=== PATIENT | female | born 1975 | race Two or more races ===

== ENCOUNTER 2017-06-14 07:45 | Emergency (ER) | payer MEDICAID ==
[~2017-06-14] VITALS: Ht 162.6 cm; Wt 77.1 kg
[~2017-06-14 07:45] MED LIST: DOCU100T15 PO; ERGO1CAP6 PO; FER325T PO; LACT10SO32 PO; POLY33504 PO
[2017-06-14 07:54] VITALS: BP 133/88
[2017-06-14] MEDS ORDERED: KETOROLAC TROMETH 60MG/2ML VIAL IM ONE (08:30)
== END 2017-06-14 08:45 | disposition home or self-care (01) ==
LOC: ER 07:45
DX: S76.012A Strain of muscle, fascia and tendon of left hip, initial encounter (principal); X50.1XXA Overexertion from prolonged static or awkward postures, initial encounter; Y93.89 Activity, other specified; Y92.89 Other specified places as the place of occurrence of the external cause; Y99.8 Other external cause status
CPT/HCPCS: 96372; 99283; J1885

== ENCOUNTER 2017-06-26 19:22 | Emergency (ER) | payer MEDICAID ==
[~2017-06-26] VITALS: Ht 162.6 cm; Wt 77.1 kg
[2017-06-26 20:33] LABS: INR 0.93 (0.9-1.15); Partial Thromboplastin Time 26.3 sec (22.64-33.71); Prothrombin Time 10.1 sec (9.37-12.3)
[2017-06-26 20:48] LABS: BUN/Creatinine Ratio 14.5; Calcium 8.6 mg/dL (8.5-10.1); Potassium 3.8 mmol/L (3.5-5.1)
[2017-06-26 20:53] LABS: Bilirubin, Total 0.3 mg/dL (0.2-1.0); Total Protein 7.7 g/dL (6.4-8.2)
[2017-06-26 21:13] LABS: Basophils # (auto) 0.1 uL; CONDITION Y; DEFINITIVE SEE PRINTOUT; Eosinophils # (auto) 0 uL; Eosinophils % (auto) 0.5 % (0.0-7.0); Hematocrit 29.4 % (36.0-46.0); Hemoglobin 9.4 g/dL (12.2-16.2); Lymphocytes # (auto) 2.3 uL; Lymphocytes % (auto) 35.3 % (10.0-50.0); Mean Corpuscular Hemoglobin 21.9 pg (28.0-32.0); Mean Corpuscular Hgb Conc. 31.8 g/dL (32.0-36.0); Mean Corpuscular Volume 68.6 fL (80.0-100.0); Mean Platelet Volume 8.9 fL (7.4-10.4); Monocytes # (auto) 0.4 uL; Monocytes % (auto) 6.4 % (0.0-12.0); Neutrophils # (auto) 3.8 uL; Neutrophils % (auto) 56.8 % (37.0-80.0); Platelet Count (auto) 355 10^3/uL (140-450); Red Cell Distribution Width 16.6 % (11.6-16.0); White Blood Cell 6.6 10^3/uL (4.4-10.8)
[2017-06-26 22:48] LABS: Urine Bilirubin Negative (Negative); Urine Blood 1+ /uL (Negative); Urine Color Yellow (Yellow); Urine Glucose Normal (Normal); Urine Ketone Negative (Negative); Urine Mucus FEW (None Seen); Urine Nitrite Negative (Negative); Urine RBC 2 /hpf (0 - 4); Urine Squamous Epithelial Cell FEW /hpf (<5); Urine pH 6.5 (5.0-8.0)
[2017-06-27] MEDS ORDERED: LORazepam 0.5 MG TAB PO ONE (04:00)
[2017-06-27 07:45] VITALS: BP 129/88
== END 2017-06-27 07:22 | disposition home or self-care (01) ==
LOC: ER 19:29
DX: F41.9 Anxiety disorder, unspecified (principal); G43.909 Migraine, unspecified, not intractable, without status migrainosus; Z87.442 Personal history of urinary calculi
CPT/HCPCS: 36415; 70450; 80053; 80307; 81001; 81025; 84702; 85025; 85610; 85730; 94761

== ENCOUNTER 2017-06-29 16:25 | Inpatient (IN) | payer MEDICAID ==
[~2017-06-29] VITALS: Ht 162.6 cm; Wt 77.8 kg
[2017-06-29 17:04] LABS: Basophils # (auto) 0 uL; Basophils % (auto) 0.6 % (0.0-2.0); CONDITION Y; DEFINITIVE SEE PRINTOUT; Eosinophils # (auto) 0 uL; Eosinophils % (auto) 0.3 % (0.0-7.0); Hemoglobin 9.8 g/dL (12.2-16.2); Lymphocytes # (auto) 1.8 uL; Lymphocytes % (auto) 32.9 % (10.0-50.0); Mean Corpuscular Hemoglobin 21.9 pg (28.0-32.0); Mean Corpuscular Hgb Conc. 31.6 g/dL (32.0-36.0); Mean Corpuscular Volume 69.2 fL (80.0-100.0); Mean Platelet Volume 8.2 fL (7.4-10.4); Monocytes # (auto) 0.4 uL; Monocytes % (auto) 6.9 % (0.0-12.0); Neutrophils # (auto) 3.3 uL; Neutrophils % (auto) 59.3 % (37.0-80.0); Platelet Count (auto) 392 10^3/uL (140-450); White Blood Cell 5.5 10^3/uL (4.4-10.8)
[2017-06-29 17:36] LABS: Albumin 3.7 g/dL (3.4-5.0); Alkaline Phosphatase 63 U/L (45-117); Anion Gap 9 (5-15); Aspartate Aminotransferase 11 U/L (15-37); BUN/Creatinine Ratio 16.7; Bilirubin, Total 0.2 mg/dL (0.2-1.0); Blood Urea Nitrogen 12 mg/dL (7-18); Calcium 8.5 mg/dL (8.5-10.1); Carbon Dioxide 23 mmol/L (21-32); Chloride 108 mmol/L (98-107); GFR African American 116 mL/min; GFR Non-African American 96 mL/min; Glucose 95 mg/dL (74-106); Magnesium 2.4 mg/dL (1.6-2.6); Potassium 4.3 mmol/L (3.5-5.1); Sodium 140 mmol/L (136-145); Total Protein 7.7 g/dL (6.4-8.2)
[2017-06-29] MEDS ORDERED: ASPirin 81 mg TAB PO ONE (23:15)
[2017-06-29] MEDS ORDERED: ACETAMINOPHEN 500 MG TAB PO PRN (23:30)
[2017-06-29] MEDS ORDERED: LORazepam 0.5 MG TAB PO PRN (23:30)
[2017-06-29] MEDS ORDERED: MORPHINE SULF INJ 2 MG/ML SYRINGE 1ML IV PRN (23:30)
[2017-06-29] MEDS ORDERED: ONDANSETRON HCL 4 MG/2 ML VIAL IV PRN (23:30)
[2017-06-29] MEDS ORDERED: ASPirin 81 mg TAB ONE (23:39)
[2017-06-29] MEDS: SODIUM CHLORIDE 0.9% 1,000 ML IV SCH (23:48)
[2017-06-30] VITALS (8 sets, daily range): BP systolic 129–141; BP diastolic 79–104
[2017-06-30] LABS: Cholesterol 180 mg/dL (< 200); HDL Cholesterol 68 mg/dL (40-59); LDL Cholesterol 110 mg/dL (< 100); Triglycerides 86 mg/dL (< 150)
[2017-06-30] MEDS: HYDROcodone-ACET 5/325MG TAB PO PRN ×4 (01:32→22:19)
[2017-06-30 05:54] LABS: Urine Bilirubin Negative (Negative); Urine Blood Negative /uL (Negative); Urine Color Yellow (Yellow); Urine Glucose Normal (Normal); Urine Ketone TRACE (Negative); Urine Mucus FEW (None Seen); Urine Nitrite Negative (Negative); Urine RBC <1 /hpf (0 - 4); Urine Squamous Epithelial Cell FEW /hpf (<5)
[2017-06-30 06:44] LABS: Basophils # (auto) 0 uL; Basophils % (auto) 0.5 % (0.0-2.0); CONDITION Y; DEFINITIVE SEE PRINTOUT; Eosinophils # (auto) 0 uL; Eosinophils % (auto) 0.9 % (0.0-7.0); Hematocrit 28.3 % (36.0-46.0); Lymphocytes # (auto) 2.5 uL; Lymphocytes % (auto) 47.4 % (10.0-50.0); Mean Corpuscular Hemoglobin 21.9 pg (28.0-32.0); Mean Corpuscular Hgb Conc. 31.8 g/dL (32.0-36.0); Mean Platelet Volume 8.8 fL (7.4-10.4); Monocytes # (auto) 0.4 uL; Monocytes % (auto) 7.7 % (0.0-12.0); Neutrophils # (auto) 2.3 uL; Neutrophils % (auto) 43.5 % (37.0-80.0); Platelet Count (auto) 315 10^3/uL (140-450); Red Cell Distribution Width 16.3 % (11.6-16.0); White Blood Cell 5.3 10^3/uL (4.4-10.8)
[2017-06-30 06:59] LABS: Potassium 3.7 mmol/L (3.5-5.1)
[2017-06-30 07:04] LABS: BUN/Creatinine Ratio 18.4; Calcium 8.3 mg/dL (8.5-10.1)
[2017-06-30] MEDS: SODIUM CHLORIDE 0.9% 1,000 ML IV SCH (07:30)
[2017-06-30] MEDS: ASPirin 81 mg TAB PO SCH (09:26)
[2017-06-30] MEDS ORDERED: ASPirin 81 mg TAB PO SCH (10:00)
[2017-06-30] MEDS ORDERED: LORazepam 2MG/ML-1ML VIAL IV ONE (14:00)
[2017-06-30] MEDS ORDERED: DOCUSATE SOD 100 MG CAP PO ONE (14:30)
[2017-06-30] MEDS ORDERED: IOHEXOL 350 MG/ML 100ML IJ ONE (16:26)
[2017-06-30] MEDS: FERROUS SULFATE 325 MG TAB PO SCH (18:35)
[2017-06-30] MEDS: DOCUSATE SOD 100 MG CAP PO SCH (21:31)
[2017-07-01 04:32] VITALS: BP 131/81
[2017-07-01 05:44] LABS: Basophils # (auto) 0 uL; Basophils % (auto) 0.8 % (0.0-2.0); CONDITION Y; DEFINITIVE SEE PRINTOUT; Eosinophils # (auto) 0.1 uL; Eosinophils % (auto) 1.3 % (0.0-7.0); Hematocrit 28.1 % (36.0-46.0); Hemoglobin 8.6 g/dL (12.2-16.2); Lymphocytes # (auto) 2.2 uL; Lymphocytes % (auto) 50.2 % (10.0-50.0); Mean Corpuscular Hemoglobin 21.6 pg (28.0-32.0); Mean Corpuscular Hgb Conc. 30.8 g/dL (32.0-36.0); Mean Corpuscular Volume 70.1 fL (80.0-100.0); Mean Platelet Volume 8.6 fL (7.4-10.4); Monocytes # (auto) 0.4 uL; Monocytes % (auto) 8.1 % (0.0-12.0); Neutrophils # (auto) 1.8 uL; Neutrophils % (auto) 39.6 % (37.0-80.0); Platelet Count (auto) 320 10^3/uL (140-450); Red Cell Distribution Width 16.4 % (11.6-16.0); White Blood Cell 4.4 10^3/uL (4.4-10.8)
[2017-07-01 06:19] LABS: Calcium 8.3 mg/dL (8.5-10.1); Potassium 3.7 mmol/L (3.5-5.1)
[2017-07-01 06:21] LABS: BUN/Creatinine Ratio 13.5
[2017-07-01 08:00] VITALS: BP 142/75
[2017-07-01] MEDS: FERROUS SULFATE 325 MG TAB PO SCH ×2 (08:11→12:00)
[2017-07-01] MEDS: HYDROcodone-ACET 5/325MG TAB PO PRN (08:12)
[2017-07-01 08:30] VITALS: BP 142/85
[2017-07-01] MEDS: ASPirin 81 mg TAB PO SCH (10:10)
[2017-07-01] MEDS: DOCUSATE SOD 100 MG CAP PO SCH (10:10)
[2017-07-01 12:17] VITALS: BP 134/69
[2017-07-01 12:31] LABS: Temperature: 22.3 C (20.0-25.0)
[2017-07-01] MEDS ORDERED: DOCU100C8 PO (13:42)
[2017-07-01] MEDS ORDERED: FER325T PO (13:42)
[2017-07-01 16:00] VITALS: BP 134/69
== END 2017-07-01 16:00 | disposition home or self-care (01) | DRG 347 ==
LOC: ER 16:32 → OVERFLOW 16:33 → WEST WING 06-30 00:30
PROVIDERS: ADMIT Nurse Practitioner Family; ATTEND Internal Medicine
DX: M50.30 Other cervical disc degeneration, unspecified cervical region (principal); M48.02 Spinal stenosis, cervical region; Z79.899 Other long term (current) drug therapy; M47.812 Spondylosis without myelopathy or radiculopathy, cervical region; D50.9 Iron deficiency anemia, unspecified; D64.9 Anemia, unspecified; I77.89 Other specified disorders of arteries and arterioles; F41.9 Anxiety disorder, unspecified; Z82.49 Family history of ischemic heart disease and other diseases of the circulatory system; Z80.9 Family history of malignant neoplasm, unspecified; Z83.2 Family history of diseases of the blood and blood-forming organs and certain disorders involving the immune mechanism; Z83.3 Family history of diabetes mellitus; Z85.89 Personal history of malignant neoplasm of other organs and systems
CPT/HCPCS: 36415; 70450; 70496; 70498; 70551; 71020; 72141; 80048; 80053; 80061; 80307; 81001; 82607; 82746; 83540; 83550; 83735; 84443; 84484; 84702; 85025; 85652; 93005; 93886

== ENCOUNTER 2018-07-01 07:09 | Emergency (ER) | payer MEDICAID ==
[~2018-07-01] VITALS: Ht 162.6 cm; Wt 89.8 kg
[~2018-07-01 07:09] MED LIST changes: +DOCU100C8 PO; -DOCU100T15 PO; -ERGO1CAP6 PO; -LACT10SO32 PO; -POLY33504 PO
[2018-07-01 07:32] VITALS: BP 151/103
[2018-07-01] MEDS ORDERED: KETOROLAC TROMETH 60MG/2ML VIAL IM ONE (07:45)
[2018-07-01] MEDS ORDERED: HYDROcodone-ACET 10/325MG TAB PO ONE (07:45)
== END 2018-07-01 09:04 | disposition home or self-care (01) ==
LOC: ER 07:09
DX: G89.29 Other chronic pain (principal); M54.5 Low back pain
CPT/HCPCS: 72131

== ENCOUNTER 2019-09-01 19:35 | Emergency (ER) | payer MEDICAID ==
[~2019-09-01] VITALS: Ht 170.2 cm; Wt 86.2 kg
[2019-09-01] MEDS ORDERED: SODIUM CHLORIDE 0.9% 500 ML IV ONE (19:54)
[2019-09-01 20:43] LABS: Basophils # (auto) 0.1 uL; Eosinophils # (auto) 0 uL; Hematocrit 21.1 % (36.0-46.0); Mean Corpuscular Hgb Conc. 30.3 g/dL (32.0-36.0); Monocytes # (auto) 0.5 uL; Nucleated Red Blood Cells % 0.2 %
[2019-09-01 20:44] LABS: Basophils % (auto) 2.8 % (0.0-2.0); Eosinophils % (auto) 0.4 % (0.0-7.0); Lymphocytes # (auto) 2.3 uL; Mean Corpuscular Hemoglobin 18.3 pg (28.0-32.0); Mean Corpuscular Volume 60.4 fL (80.0-100.0); Monocytes % (auto) 9.1 % (0.0-12.0); Neutrophils % (auto) 40.7 % (37.0-80.0); Platelet Count (auto) 321 10^3/uL (140-450); Red Cell Distribution Width 17.8 % (11.8-14.3)
[2019-09-01 20:45] LABS: Albumin 3.6 g/dL (3.4-5.0); Anion Gap 8 (5-15); Blood Urea Nitrogen 12 mg/dL (7-18); Calcium 7.8 mg/dL (8.5-10.1); Carbon Dioxide 22 mmol/L (21-32); Chloride 112 mmol/L (98-107); Glucose 79 mg/dL (74-106); Magnesium 2.1 mg/dL (1.6-2.6); Potassium 3.9 mmol/L (3.5-5.1); Sodium 142 mmol/L (136-145)
[2019-09-01 20:47] LABS: Alanine Aminotransferase 16 U/L (13-56); Aspartate Aminotransferase 14 U/L (15-37); BUN/Creatinine Ratio 18.8; GFR African American 132 mL/min; GFR Non-African American 109 mL/min
[2019-09-01 20:49] LABS: Hemoglobin 6.4 g/dL (12.2-16.2)
[2019-09-01 20:52] LABS: Alkaline Phosphatase 63 U/L (45-117); Bilirubin, Total 0.2 mg/dL (0.2-1.0); Total Protein 7.2 g/dL (6.4-8.2)
[2019-09-01 21:37] LABS: INR 0.95 (0.9-1.15); Partial Thromboplastin Time 26.3 sec (23.64-32.05)
[2019-09-01 21:41] LABS: Urine Bacteria MANY /hpf (None Seen); Urine Blood Negative /uL (Negative); Urine Mucus FEW (None Seen); Urine Specific Gravity 1.018 (1.001-1.035); Urine WBC 10 /hpf (0 - 5)
[2019-09-01 22:41] VITALS: BP 117/74
[2019-09-01 22:59] VITALS: BP 120/79
[2019-09-02 00:14] VITALS: BP 143/71
[2019-09-02 00:34] VITALS: BP 110/69
[2019-09-02 00:49] VITALS: BP 106/63
[2019-09-02 02:06] VITALS: BP 128/83
== END 2019-09-02 02:36 | disposition home or self-care (01) ==
LOC: ER 19:35 → EDBD 19:35 → ER 09-02 02:15
DX: D64.9 Anemia, unspecified (principal)
CPT/HCPCS: 36415; 36430; 71045; 80053; 81001; 83735; 83880; 84484; 85025; 85610; 85730; 86850; 86900; 86901; 86920; 94761; 99285; J7030; J7040; P9016

== ENCOUNTER 2021-09-04 10:30 | Inpatient (IN) | payer MEDICAID ==
[2021-09-04] VITALS (7 sets, daily range): BP systolic 126–150; BP diastolic 75–91
[~2021-09-04] VITALS: Ht 162.6 cm; Wt 89.1 kg
[~2021-09-04 10:30] MED LIST changes: +DOCU100C10 PO; -DOCU100C8 PO; +ROPI0.254 PO
[2021-09-04 11:38] LABS: White Blood Cell 3.5 10^3/uL (4.4-10.8)
[2021-09-04 11:42] LABS: Hematocrit 19.7 % (36.0-46.0); Mean Corpuscular Hemoglobin 15.5 pg (28.0-32.0); Mean Corpuscular Hgb Conc. 28.8 g/dL (32.0-36.0); Mean Corpuscular Volume 54.1 fL (80.0-100.0); Red Blood Cells 3.65 10^6/uL (4.0-5.20); Red Cell Distribution Width 19.8 % (11.8-14.3)
[2021-09-04 11:56] LABS: Hemoglobin 5.7 g/dL (12.2-16.2)
[2021-09-04 11:57] LABS: Basophils % (manual) 0 (0.0-2.0); Blast Cells 0; Eosinophils % (manual) 0 (0-7); Metamyelocytes % 0; Myelocytes % 0; Promyelocytes % 0; Reactive Lymphocytes 0
[2021-09-04 12:02] LABS: Albumin 3.4 g/dL (3.4-5.0); BUN/Creatinine Ratio 18.6; Bilirubin, Total 0.4 mg/dL (0.2-1.0); Calcium 8.2 mg/dL (8.5-10.1); Total Protein 7.2 g/dL (6.4-8.2)
[2021-09-04 13:03] LABS: Band Neutrophils % (manual) 2; Lymphocytes % (manual) 48 (10.0-50.0); Monocytes % (manual) 7 (0-12)
[2021-09-04] MEDS ORDERED: MORPHINE SULFATE INJECTION 2 MG/ML SYRG IV PRN (13:30)
[2021-09-04] MEDS ORDERED: ONDANSETRON HCL 4 MG/2 ML VIAL IV PRN (13:30)
[2021-09-04] MEDS ORDERED: NITROGLYCERIN 0.4 MG SL TAB SL PRN (13:30)
[2021-09-04] MEDS ORDERED: ACETAMINOPHEN 325 MG TAB PO PRN (13:30)
[2021-09-04] MEDS ORDERED: DOCUSATE SOD 100 MG CAP PO PRN (13:30)
[2021-09-04] MEDS ORDERED: SODIUM FERR GLUC 62.5MG/5ML 125 MG in SODIUM CHL 0.9% 100 ML IV ONE (13:45)
[2021-09-04 14:36] LABS: % Iron Saturation 3.7 % (15-50)
[2021-09-04] MEDS: HYDROcodone-ACET 5/325MG TAB PO PRN ×2 (16:59→21:38)
[2021-09-04] MEDS: ASCORBIC ACID 500 MG TAB PO SCH (21:29)
[2021-09-05 05:41] LABS: Hemoglobin 8.1 g/dL (12.2-16.2)
[2021-09-05 05:44] LABS: Hematocrit 27.3 % (36.0-46.0); Mean Corpuscular Hemoglobin 17.9 pg (28.0-32.0); Mean Corpuscular Hgb Conc. 29.8 g/dL (32.0-36.0); Mean Corpuscular Volume 60.2 fL (80.0-100.0); Red Blood Cells 4.53 10^6/uL (4.0-5.20); White Blood Cell 5.3 10^3/uL (4.4-10.8)
[2021-09-05 06:00] VITALS: BP 124/74
[2021-09-05 06:09] LABS: Calcium 8.2 mg/dL (8.5-10.1); Potassium 4.5 mmol/L (3.5-5.1)
[2021-09-05 06:15] LABS: Albumin 3.3 g/dL (3.4-5.0); BUN/Creatinine Ratio 21.8; Bilirubin, Total 0.6 mg/dL (0.2-1.0); Red Cell Distribution Width 28.3 % (11.8-14.3); Total Protein 6.3 g/dL (6.4-8.2)
[2021-09-05 06:16] LABS: Basophils % (manual) 0 (0.0-2.0); Blast Cells 0; Metamyelocytes % 0; Myelocytes % 0; Promyelocytes % 0
[2021-09-05 06:48] LABS: Band Neutrophils % (manual) 2; Eosinophils % (manual) 1 (0-7); Lymphocytes % (manual) 50 (10.0-50.0); Monocytes % (manual) 6 (0-12); Reactive Lymphocytes 1
[2021-09-05 10:08] VITALS: BP 128/75
[2021-09-05] MEDS: FAMOTIDINE 20 MG TAB PO SCH (10:39)
[2021-09-05] MEDS: ASCORBIC ACID 500 MG TAB PO SCH ×2 (10:39→21:48)
[2021-09-05] MEDS: ZINC SULFATE 220mg CAP or TAB PO SCH (10:39)
[2021-09-05] MEDS: HYDROcodone-ACET 5/325MG TAB PO PRN ×2 (10:46→22:42)
[2021-09-05] MEDS: SODIUM FERR GLUC 62.5MG/5ML 125 MG in SODIUM CHL 0.9% 100 ML IV SCH (12:08)
[2021-09-05 14:00] VITALS: BP 127/80
[2021-09-05 17:32] VITALS: BP 123/83
[2021-09-05 22:00] VITALS: BP 154/95
[2021-09-06 05:00] VITALS: BP 123/68
[2021-09-06 09:00] VITALS: BP 134/85
[2021-09-06] MEDS: ASCORBIC ACID 500 MG TAB PO SCH (09:18)
[2021-09-06] MEDS: ZINC SULFATE 220mg CAP or TAB PO SCH (09:18)
[2021-09-06] MEDS: FAMOTIDINE 20 MG TAB PO SCH (09:19)
[2021-09-06] MEDS: SODIUM FERR GLUC 62.5MG/5ML 125 MG in SODIUM CHL 0.9% 100 ML IV SCH (11:10)
[2021-09-06 13:00] VITALS: BP 125/74
[2021-09-06 17:00] VITALS: BP 142/92
[2021-09-06 18:36] VITALS: BP 142/92
== END 2021-09-06 20:27 | disposition home or self-care (01) | DRG 663 ==
LOC: ER 10:30 → OVERFLOW 13:25 → WEST WING 18:46
PROVIDERS: ADMIT Nurse Practitioner; ATTEND Nurse Practitioner
PROC: 30233N1 Transfusion of Nonautologous Red Blood Cells into Peripheral Vein, Percutaneous Approach (ICD-10-PCS; principal; 2021-09-04)
DX: D50.9 Iron deficiency anemia, unspecified (principal); I10 Essential (primary) hypertension; Z20.822 Contact with and (suspected) exposure to COVID-19; Z80.9 Family history of malignant neoplasm, unspecified; Z82.49 Family history of ischemic heart disease and other diseases of the circulatory system; Z83.2 Family history of diseases of the blood and blood-forming organs and certain disorders involving the immune mechanism; Z98.84 Bariatric surgery status; Z83.3 Family history of diabetes mellitus; Z88.8 Allergy status to other drugs, medicaments and biological substances; Z90.49 Acquired absence of other specified parts of digestive tract; Z98.51 Tubal ligation status
CPT/HCPCS: 36415; 36430; 80053; 82607; 83540; 83550; 85007; 85027; 86850; 86900; 86901; 86920; 87426; 96365; G0378; J2405

== ENCOUNTER 2024-04-05 12:20 | Emergency (ER) | payer MEDICAID ==
[~2024-04-05] VITALS: Ht 170.2 cm; Wt 82.0 kg
[~2024-04-05 12:20] MED LIST changes: +DOCU-265 PO; -DOCU100C10 PO; -ROPI0.254 PO; +ROPI5TAB20 PO
[2024-04-05] MEDS: SODIUM CHLORIDE 0.9% 500 ML IV ONE (13:15)
[2024-04-05 13:26] VITALS: BP 142/88; PULSE 89; RESP 19; O2SAT 98
[2024-04-05 13:48] LABS: Basophils # (auto) 0 10 ^3/uL (0-0.2); Basophils % (auto) 0.5 % (0.0-2.0); Eosinophils # (auto) 0 10 ^3/uL (0-0.8); Eosinophils % (auto) 0.3 % (0.0-7.0); Hematocrit 32.6 % (36.0-46.0); Hemoglobin 10.1 g/dL (12.2-16.2); Lymphocytes # (auto) 1.3 10 ^3/uL (0.4-5.4); Lymphocytes % (auto) 23.2 % (10.0-50.0); Mean Corpuscular Hemoglobin 20.4 pg (28.0-32.0); Mean Corpuscular Hgb Conc. 31.2 g/dL (32.0-36.0); Mean Corpuscular Volume 65.5 fL (80.0-100.0); Monocytes # (auto) 0.4 10 ^3/uL (0-1.3); Monocytes % (auto) 7.5 % (0.0-12.0); Neutrophils # (auto) 3.9 10 ^3/uL (1.6-8.6); Neutrophils % (auto) 68.5 % (37.0-80.0); Red Blood Cells 4.97 10^6/uL (4.0-5.20); White Blood Cell 5.7 10^3/uL (4.4-10.8)
[2024-04-05 13:49] LABS: Red Cell Distribution Width 22.4 % (11.8-14.3)
[2024-04-05 13:57] LABS: Chloride 107 mmol/L (98-107); Potassium 3.3 mmol/L (3.5-5.1); Sodium 138 mmol/L (136-145)
[2024-04-05 13:58] LABS: Anion Gap 8 (5-15); Calcium 9.8 mg/dL (8.5-10.1); Carbon Dioxide 23 mmol/L (20-30)
[2024-04-05 14:01] LABS: Prothrombin Time 10.6 sec (9.3-11.8)
[2024-04-05 14:03] LABS: BUN/Creatinine Ratio 14.5 (10.0-20.0); Blood Urea Nitrogen 9 mg/dL (9-23); Glucose 87 mg/dL (74-106)
== END 2024-04-05 18:16 | disposition home or self-care (01) ==
LOC: ER 12:20
DX: R53.1 Weakness (principal); I10 Essential (primary) hypertension; Z86.2 Personal history of diseases of the blood and blood-forming organs and certain disorders involving the immune mechanism; Z90.49 Acquired absence of other specified parts of digestive tract; Z79.899 Other long term (current) drug therapy; Z88.1 Allergy status to other antibiotic agents
CPT/HCPCS: 36415; 80048; 85025; 85610; 85730; 86850; 86900; 86901; 96360; 99283; J7040

== ENCOUNTER 2025-02-25 09:54 | Inpatient (IN) | payer MEDICAID, OTHER ==
[~2025-02-25] VITALS: Ht 162.6 cm; Wt 83.6 kg
--- NOTE | 2025-02-25 10:51 | ED.PDOC ---
History of Present Illness HPI Comments 49 y/o F, with PMHx of anemia, cholelithiasis, and hypertension presents to the ED for CC of abnormal labs. Patient states, that she had labs drawn on Saturday (02/23/25); and was told to be anemic. Patient relays, that she had a gastric bypass [id number] ago, and has since experienced symptoms of intense fatigue and weakness. Patient comments that weakness, fatigue, and dizziness and have worsened in the last x2days. Patient endorses, being transfused [id number] ago. No other symptoms or modifying factors present at this time. Chief Complaint: Abnormal LAB's Time Seen by MD: 10:50 Primary Care Provider: CROSSOVER Reviewed Notes: Nurses Notes, Medications, Allergies Allergies: Coded Allergies: Amoxicillin (Verified Allergy, Unknown, 10/29/19) No Known Drug Allergy (Verified Allergy, Unknown, 06/29/17) Home Meds Active Scripts Docusate Sodium (Docusate Sodium) 100 Mg Cap, 100 MG PO BID, #60 CAP Hold for more than 2 bowel movements daily. Prov:SAMANTHA STEIN MD 07/01/17 Ferrous Sulfate (Ferrous Sulfate) 325 Mg Tab, 325 MG PO TIDWM, #90 TAB Prov:SAMANTHA STEIN MD 07/01/17 Reported Medications Ropinirole Hydrochloride (Ropinirole Hcl) 0.25 Mg Tab, 0.25 MG PO HS, #4 TAB 10/29/19 Information Source: Patient Mode of Arrival: Ambulatory Severity: Moderate Timing: Weeks Duration: Since onset Prehospital treatment: None Past Medical History PAST MEDICAL HISTORY: Anemia, Gallstones, HTN Surgical History: Cholecystectomy, , Tubal Ligation PERSONAL FITNESS TRAINER History: No Pertinent PERSONAL FITNESS TRAINER History Family History Family History: Family hx of DM, Family hx of Cancer, Family hx of heart roberta, Family hx of HTN Family History (Other): anemia Social History Smoker: Non-Smoker Alcohol: Denies ETOH Use Drugs: Denies Drug Use Lives In: Home Constitutional: reports: weakness; denies: chills, diaphoresis, fatigue, fever, malaise, sweats, others EENTM: denies: blurred vision, double vision, ear bleeding, ear discharge, ear drainage, ear pain, ear ringing, eye pain, eye redness, hearing loss, mouth pain, mouth swelling, nasal discharge, nose bleeding, nose congestion, nose pain, photophobia, tearing, throat pain, throat swelling, voice changes, others Respiratory: denies: cough, hemoptysis, orthopnea, SOB at rest, shortness of b reath, SOB with excertion, stridor, wheezing, others Cardiovascular: denies: chest pain, dizzy spells, diaphoresis, Dyspnea on exertion, edema, irregular heart beat, left arm pain, lightheadedness, palpitations, PND, syncope, others Gastrointestinal: denies: abdomen distended, abdominal pain, blood streaked bowels, constipated, diarrhea, dysphagia, difficulty swallowing, hematemesis, melena, nausea, poor appetite, poor fluid intake, rectal bleeding, rectal pain, vomiting, others Genitourinary: denies: abnormal vagina bleeding, burning, dyspareunia, dysuria, flank pain, frequency, hematuria, incontinence, pain, , vagina discharge, urgency, others Neurological: reports: dizziness; denies: fainting, headache, left sided numbness, left sided weakness, numbness, paresthesia, pre-existing deficit, right sided numbness, right sided weakness, seizure, speech problems, tingling, tremors, weakness, others Musculoskeletal: denies: back pain, gout, joint pain, joint swelling, muscle pain, muscle stiffness, neck pain, others Integumetry: denies: bruises, change in color, change in hair/nails, dryness, laceration, lesions, lumps, rash, wounds, others Allergic/Immunocompromised: denies: Difficulty Healing, Frequent Infections, Hives, Itching, others Hematologic/Lymphatic: denies: anemia, blood clots, easy bleeding, easy brui sing, swollen glands, others Endocrine: denies: excessive hunger, excessive sweating, excessive thirst, ex cessive urination, flushing, intolerance to cold, intolerance to heat, unexplained weight gain, unexplained weight loss, others Psychiatric: denies: anxiety, bipolar disorder, depression, hopeless, panic disorder, schizophrenia, sleepless, suicidal, others All Other Systems: Reviewed and Negative Physical Exam General Appearance: Moderate Distress HEENT: Pale Conjuntivae (L), Pale Conjuntivae (R), Pharynx Normal, TMs Normal Neck: Full Range of Motion, Non-Tender, Normal, Normal Inspection Respiratory: Chest Non-Tender, Lungs Clear, No Accessory Muscle Use, No Respiratory Distress, Normal Breath Sounds Cardiovascular: No Edema, No JVD, No Murmur, No Gallop, Normal Peripheral Pulses, Regular Rate/Rhythm Breast Exam: Deferred Gastrointestinal: No Organomegaly, Non Tender, No Pulsatile Mass, Normal Bowel Sounds, Soft Genitalia: Deferred Pelvic: Deferred Rectal: Deferred Extremities: No calf tenderness, Normal capillary refill, Normal inspection, Normal range of motion, Non-tender, No pedal edema Musculoskeletal : Apperance: Normal Neurologic: Alert, etl tester II-XII nml as Tested, Motor Weakness, Normal Affect, Normal Mood, No Sensory Deficits Cerebellar Function: Normal Reflexes: Normal Skin: Dry, Pallor, Warm Lymphatic: No Adenopathy Was a procedure done? Was a procedure done?: No Differential Dx Considerations may include: ANEMIA X-Ray, Labs, Meds, VS Vital Signs Date Time Temp Pulse Resp B/P (MAP) Pulse Ox O2 Delivery O2 Flow Rate FiO2 02/25/25 11:15 97.8 90 16 134/89 (104) 100 97.8 02/25/25 10:36 98.4 109 16 139/99 (112) 100 98.4 Lab Test 02/25/25 10:41 Range/Units White Blood Count 2.5 L 4.4-10.8 10^3/uL Red Blood Count 4.48 4.0-5.20 10^6/uL Hemoglobin 8.2 L 12.2-16.2 g/dL Hematocrit 27.3 L 36.0-46.0 % Mean Corpuscular Volume 60.8 L 80.0-100.0 fL Mean Corpuscular Hemoglobin 18.2 L 28.0-32.0 pg Mean Corpuscular Hemoglobin Concent 30.0 L 32.0-36.0 g/dL Red Cell Distribution Width 18.5 H 11.8-14.3 % Platelet Count 326 140-450 10^3/uL Mean Platelet Volume 8.4 6.9-10.8 fL Neutrophils (%) (Auto) 43.7 37.0-80.0 % Lymphocytes (%) (Auto) 45.5 10.0-50.0 % Monocytes (%) (Auto) 8.8 0.0-12.0 % Eosinophils (%) (Auto) 0.7 0.0-7.0 % Basophils (%) (Auto) 1.3 0.0-2.0 % Neutrophils # (Auto) 1.1 L 1.6-8.6 10 ^3/uL Lymphocytes # (Auto) 1.1 0.4-5.4 10 ^3/uL Monocytes # (Auto) 0.2 0-1.3 10 ^3/uL Eosinophils # (Auto) 0 0-0.8 10 ^3/uL Basophils # (Auto) 0 0-0.2 10 ^3/uL Nucleated Red Blood Cells 0.5 % Prothrombin Time 10.4 9.3-11.8 sec Prothrombin Time INR 0.98 0.9-1.15 Activated Partial Thromboplast Time 25.0 24.5-34.5 SEC Sodium Level 141 136-145 mmol/L Potassium Level 3.6 3.5-5.1 mmol/L Chloride Level 108 H 98-107 mmol/L Carbon Dioxide Level 24 20-31 mmol/L Anion Gap 9 5-15 Blood Urea Nitrogen 8 L 9-23 mg/dL Creatinine 0.64 0.550-1.02 mg/dL Glomerular Filtration Rate Calc 110 >90 mL/min BUN/Creatinine Ratio 12.5 10.0-20.0 Serum Glucose 100 74-106 mg/dL Calcium Level 9.7 8.7-10.4 mg/dL The CBC shows anemia with a hemoglobin of 8.2 and hematocrit 27.3 The rest of the CBC is within normal limits The chemistry panel is within normal limits At this time, the patient was still having some weakness. We did type and screen the patient is so the patient most likely will be transfused at this time We feel that this patient needs a further workup secondary to the persistent symptoms and no explanation for this anemia The patient was being admitted Time of 1ST Reevaluation: 11:20 Reevaluation 1ST: Unchanged Patient Education/Counseling: Diagnosis, Treatment, Prognosis Family Education/Counseling: No Family Present Departure 1 Departure Time of Disposition: 11:19 Impression: Primary Impression: Generalized weakness Additional Impression: Anemia Qualified Codes: D64.9 - Anemia, unspecified Disposition: 09 ADMITTED INPATIENT Admit to: Tele Condition: Fair Critical Care Note Critical Care Time?: Yes (35 min-critical care time only) Stability Stability form required: Yes Unstable for transfer: Telemetry monitoring (Telemetry monitoring required), ED Physician Assesment (Clinical assesment) Heart Score Heart Score: Heart Score Response (Comments) Value History N/A 0 EKG N/A 0 Age N/A 0 Risk Factors N/A 0 Troponin N/A 0 Total 0 I personally scribed for LEEROY GONZALEZ MD ([email or web address]) on 02/25/25 at 10:51. Electronically submitted by Elvira Dang ([email or web address]). I personally scribed for LEEROY GONZALEZ MD ([email or web address]) on 02/25/25 at 11:04. Electronically submitted by Elvira Dang ([email or web address]). LEEROY GONZALEZ MD February 25, 2025 10:51
[2025-02-25 10:54] LABS: Basophils # (auto) 0 10 ^3/uL (0-0.2); Eosinophils # (auto) 0 10 ^3/uL (0-0.8); Lymphocytes # (auto) 1.1 10 ^3/uL (0.4-5.4); White Blood Cell 2.5 10^3/uL (4.4-10.8)
[2025-02-25 10:55] LABS: Basophils % (auto) 1.3 % (0.0-2.0); Eosinophils % (auto) 0.7 % (0.0-7.0); Hematocrit 27.3 % (36.0-46.0); Hemoglobin 8.2 g/dL (12.2-16.2); Lymphocytes % (auto) 45.5 % (10.0-50.0); Mean Corpuscular Hemoglobin 18.2 pg (28.0-32.0); Mean Corpuscular Volume 60.8 fL (80.0-100.0); Monocytes # (auto) 0.2 10 ^3/uL (0-1.3); Monocytes % (auto) 8.8 % (0.0-12.0); Neutrophils # (auto) 1.1 10 ^3/uL (1.6-8.6); Neutrophils % (auto) 43.7 % (37.0-80.0); Nucleated Red Blood Cells % 0.5 %; Platelet Count (auto) 326 10^3/uL (140-450); Red Blood Cells 4.48 10^6/uL (4.0-5.20); Red Cell Distribution Width 18.5 % (11.8-14.3)
[2025-02-25 11:03] LABS: Potassium 3.6 mmol/L (3.5-5.1); Sodium 141 mmol/L (136-145)
[2025-02-25 11:04] LABS: Anion Gap 9 (5-15); Calcium 9.7 mg/dL (8.7-10.4); Carbon Dioxide 24 mmol/L (20-31); Chloride 108 mmol/L (98-107)
[2025-02-25 11:09] LABS: BUN/Creatinine Ratio 12.5 (10.0-20.0); Blood Urea Nitrogen 8 mg/dL (9-23); Glucose 100 mg/dL (74-106); INR 0.98 (0.9-1.15); Prothrombin Time 10.4 sec (9.3-11.8)
[2025-02-25 11:15] VITALS: PULSE 90; RESP 16; O2SAT 100
--- NOTE | 2025-02-25 18:27 | ECG ---
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
--- NOTE | 2025-02-25 22:56 | DVHHPRES ---
History of Present Illness Resident Creating Document: NIRANJAN CHAVES RESIDENT History of Present Illness This is a 49-year-old female patient with past medical history of gastric bypass 10 years ago, for C-sections, renal calculi, moderate canal stenosis L4-L5 presented to the ER with a chief complaint of generalized weakness, pal pitations, fatigue, shortness of breath, lightheadedness, for the past 2 weeks. She was seen by telehealth LDL this morning and she was sent to the ER given her lives were abnormal, ferritin was 6, iron saturation was 3, hemoglobin was 8.3. Patient receives IV iron infusion but has not been receiving dose infusions due to some change in insurance and she could not follow up with her shade bander Dr. Russell. Patient has chronic anemia receiving transfusion Q 1 hour year Past medical history: See above Home medication: Amlodipine, losartan, Lexapro Patient seen and examined in the ER. Smoke: No ALCOHOL: none Drugs: None Lives: with Family Review of Systems Constitutional: Yes: Weakness Respiratory: Shortness of breath Cardiovascular: Chest Pain Allergies: Coded Allergies: Amoxicillin (Verified Allergy, Unknown, 10/29/19) No Known Drug Allergy (Verified Allergy, Unknown, 06/29/17) Exam Vital Signs Vital Signs Date Time Temp Pulse Resp B/P (MAP) Pulse Ox O2 Delivery O2 Flow Rate FiO2 02/25/25 17:27 98.8 89 20 129/78 (95) 98 98.8 02/25/25 17:27 Room Air 02/25/25 11:15 0 21 Exam Patient lying in bed, in no acute distress General: Well-built, afebrile, palor, mucosae are moist Cardiovascular: Regular S1 and S2. No murmurs, gallops or rubs. No JVD elevation. No pedal edema Respiratory: Normal B/L air entry on room air. Clear lung sounds on auscultation Abdomen: Soft, nontender, nondistended, normoactive bowel sounds, no rebound tenderness, no organomegaly, no masses Genitourinary: Deferred MSK/skin: Mobilizes 4 limbs. Skin is dry and warm Neurological: No motor, no sensitive deficits, normal speech. Pupils are isocoric and reactive. Psych/Mental Status: A/Ox3 Labs/Xrays Labs Test 02/25/25 10:41 Range/Units White Blood Count 2.5 L 4.4-10.8 10^3/uL Red Blood Count 4.48 4.0-5.20 10^6/uL Hemoglobin 8.2 L 12.2-16.2 g/dL Hematocrit 27.3 L 36.0-46.0 % Mean Corpuscular Volume 60.8 L 80.0-100.0 fL Mean Corpuscular Hemoglobin 18.2 L 28.0-32.0 pg Mean Corpuscular Hemoglobin Concent 30.0 L 32.0-36.0 g/dL Red Cell Distribution Width 18.5 H 11.8-14.3 % Platelet Count 326 140-450 10^3/uL Mean Platelet Volume 8.4 6.9-10.8 fL Neutrophils (%) (Auto) 43.7 37.0-80.0 % Lymphocytes (%) (Auto) 45.5 10.0-50.0 % Monocytes (%) (Auto) 8.8 0.0-12.0 % Eosinophils (%) (Auto) 0.7 0.0-7.0 % Basophils (%) (Auto) 1.3 0.0-2.0 % Neutrophils # (Auto) 1.1 L 1.6-8.6 10 ^3/uL Lymphocytes # (Auto) 1.1 0.4-5.4 10 ^3/uL Monocytes # (Auto) 0.2 0-1.3 10 ^3/uL Eosinophils # (Auto) 0 0-0.8 10 ^3/uL Basophils # (Auto) 0 0-0.2 10 ^3/uL Nucleated Red Blood Cells 0.5 % Reticulocyte Count (auto) 1.68 H 0.5-1.5 % Prothrombin Time 10.4 9.3-11.8 sec Prothrombin Time INR 0.98 0.9-1.15 Activated Partial Thromboplast Time 25.0 24.5-34.5 SEC Sodium Level 141 136-145 mmol/L Potassium Level 3.6 3.5-5.1 mmol/L Chloride Level 108 H 98-107 mmol/L Carbon Dioxide Level 24 20-31 mmol/L Anion Gap 9 5-15 Blood Urea Nitrogen 8 L 9-23 mg/dL Creatinine 0.64 0.550-1.02 mg/dL Glomerular Filtration Rate Calc 110 >90 mL/min BUN/Creatinine Ratio 12.5 10.0-20.0 Serum Glucose 100 74-106 mg/dL Calcium Level 9.7 8.7-10.4 mg/dL Vitamin D 25-Hydroxy 5.8 L 30.0-100 ng/mL Assessment/Plan Assessment/Plan Symptomatic anemia 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 Case discussed with Dr. Smith Plan discussed with: Patient Date of Service: February 25, 2025 Billing Provider: SERAFIN SMITH MD Common Visit Codes: 01806-QMONIPS INP/OBS CARE (HIGH) NIRANJAN CHAVES RESIDENT February 25, 2025 22:56
[2025-02-25 22:59] LABS: Magnesium 1.9 mg/dL (1.6-2.6)
[2025-02-25 23:01] LABS: Phosphorus 3.2 mg/dL (2.4-5.1)
[2025-02-25 23:05] LABS: Ferritin 3.5 ng/mL (10-291); Folate (Folic Acid) 10.81 ng/mL (>5.38)
[2025-02-25 23:13] LABS: % Iron Saturation 6.1 % (15-50)
[2025-02-26 01:00] VITALS: BP 107/76; PULSE 82; RESP 17; TEMP 97.9; O2SAT 100
--- NOTE | 2025-02-26 05:38 | DVHDSRES ---
Discharge Summary Date of Admission Resident Creating Document: NIRANJAN CHAVES RESIDENT February 25, 2025 at 22:55 Date of Discharge: February 26, 2025 Labs/Diagnostic Data: Laboratory Results Test 02/25/25 10:41 White Blood Count 2.5 10^3/uL (4.4-10.8) Red Blood Count 4.48 10^6/uL (4.0-5.20) Hemoglobin 8.2 g/dL (12.2-16.2) Hematocrit 27.3 % (36.0-46.0) Mean Corpuscular Volume 60.8 fL (80.0-100.0) Mean Corpuscular Hemoglobin 18.2 pg (28.0-32.0) Mean Corpuscular Hemoglobin Concent 30.0 g/dL (32.0-36.0) Red Cell Distribution Width 18.5 % (11.8-14.3) Platelet Count 326 10^3/uL (140-450) Mean Platelet Volume 8.4 fL (6.9-10.8) Neutrophils (%) (Auto) 43.7 % (37.0-80.0) Lymphocytes (%) (Auto) 45.5 % (10.0-50.0) Monocytes (%) (Auto) 8.8 % (0.0-12.0) Eosinophils (%) (Auto) 0.7 % (0.0-7.0) Basophils (%) (Auto) 1.3 % (0.0-2.0) Neutrophils # (Auto) 1.1 10 ^3/uL (1.6-8.6) Lymphocytes # (Auto) 1.1 10 ^3/uL (0.4-5.4) Monocytes # (Auto) 0.2 10 ^3/uL (0-1.3) Eosinophils # (Auto) 0 10 ^3/uL (0-0.8) Basophils # (Auto) 0 10 ^3/uL (0-0.2) Nucleated Red Blood Cells 0.5 % Reticulocyte Count (auto) 1.68 % (0.5-1.5) Prothrombin Time 10.4 sec (9.3-11.8) Prothrombin Time INR 0.98 (0.9-1.15) Activated Partial Thromboplast Time 25.0 SEC (24.5-34.5) Sodium Level 141 mmol/L (136-145) Potassium Level 3.6 mmol/L (3.5-5.1) Chloride Level 108 mmol/L (98-107) Carbon Dioxide Level 24 mmol/L (20-31) Anion Gap 9 (5-15) Blood Urea Nitrogen 8 mg/dL (9-23) Creatinine 0.64 mg/dL (0.550-1.02) Glomerular Filtration Rate Calc 110 mL/min (>90) BUN/Creatinine Ratio 12.5 (10.0-20.0) Serum Glucose 100 mg/dL (74-106) Hemoglobin A1c < 5.7 % A1C (<5.7) Calcium Level 9.7 mg/dL (8.7-10.4) Phosphorus Level 3.2 mg/dL (2.4-5.1) Magnesium Level 1.9 mg/dL (1.6-2.6) Iron Level 27 ug/dL (50-170) Total Iron Binding Capacity 444 ug/dL (250-425) Percent Iron Saturation 6.1 % (15-50) Ferritin 3.5 ng/mL (10-291) Triglycerides Level 99 mg/dL (< 150) Cholesterol Level 216 mg/dL (< 200) LDL Cholesterol 129 mg/dL (< 100) HDL Cholesterol 90 mg/dL (40-59) Vitamin B12 Level 495 pg/mL (211-911) Vitamin D 25-Hydroxy 5.8 ng/mL (30.0-100) Folic Acid 10.81 ng/mL (>5.38) Thyroid Stimulating Hormone (TSH) 3.03 uIU/mL (0.55-4.78) Other Laboratory Tests 02/25/25 10:41 Brief Hx & Hospital Course: This is a 49-year-old female patient with past medical history of gastric bypass 10 years ago, for C-sections, renal calculi, moderate canal stenosis L4-L5 presented to the ER with a chief complaint of generalized weakness, palpitations, fatigue, shortness of breath, lightheadedness, for the past 2 weeks. She was seen by telehealth LDL this morning and she was sent to the ER given her lives were abnormal, ferritin was 6, iron saturation was 3, hemoglobin was 8.3. Patient receives IV iron infusion but has not been receiving dose infusions due to some change in insurance and she could not follow up with her product support specialist Dr. Russell. Patient has chronic anemia receiving transfusion Q 1 hour year Past medical history: See above Home medication: Amlodipine, losartan, Lexapro Patient left against medical advice uric ongoing evaluation and management. 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 Patient was counseled about treatment plan, medications, possible side effects, patientverbalized understanding. All questions were answered to the best of my ability. This discharge took greater then 30 minutes in planning, reviewing documentation, counseling the patient, and discussing with other team members." ASSESSMENT ASSESSMENT Assessment Date of Service: February 26, 2025 Billing Provider: SERAFIN ROQUE MD Common Visit Codes: 84690-QAY/OBS DISCH DAY <30MIN NIRANJAN CHAVES RESIDENT February 26, 2025 05:38 SERAFIN ROQUE MD February 26, 2025 17:38
== END 2025-02-26 02:30 | disposition left against medical advice (07) | DRG 812 ==
LOC: ER 09:54 → OVERFLOW 22:55
PROVIDERS: ADMIT Internal Medicine; ATTEND Internal Medicine
DX: D64.9 Anemia, unspecified (principal); K90.9 Intestinal malabsorption, unspecified; I10 Essential (primary) hypertension; K80.20 Calculus of gallbladder without cholecystitis without obstruction; D72.819 Decreased white blood cell count, unspecified; E66.9 Obesity, unspecified; Z53.29 Procedure and treatment not carried out because of patient's decision for other reasons; Z98.84 Bariatric surgery status; Z79.899 Other long term (current) drug therapy; Z82.49 Family history of ischemic heart disease and other diseases of the circulatory system; Z83.3 Family history of diabetes mellitus; Z68.31 Body mass index [BMI] 31.0-31.9, adult; Z87.442 Personal history of urinary calculi
CPT/HCPCS: 36415; 80048; 80061; 82306; 82607; 82728; 82746; 83036; 83540; 83550; 83735; 84100; 84443; 85025; 85045; 85610; 85730; 86850; 86900; 86901; 93005; 99291; G0378